=== PATIENT | female | born 2000 | race Caucasian/White ===

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

== ENCOUNTER → 2021-07-23 | Outpatient (CLI) | payer BC ==
[~2021-07-23] MED LIST changes: +MORGIDOX 1X100100 MG PO
== END ==
LOC: LAB 16:57
DX: L65.9 Nonscarring hair loss, unspecified (principal); K90.9 Intestinal malabsorption, unspecified

== ENCOUNTER → 2024-02-28 | Outpatient (CLI) | payer OTHER, BC | LOC: LAB 09:25 | DX: K90.9 Intestinal malabsorption, unspecified (principal); G43.909 Migraine, unspecified, not intractable, without status migrainosus; R73.9 Hyperglycemia, unspecified ==